=== PATIENT | male | born 1980 | race Caucasian/White ===

== ENCOUNTER → 2016-04-09 | Outpatient (CLI) | payer OTHER ==
[2016-04-09 13:47] LABS: BASO % 0.4 %; BASO ABS # 0.02 K/uL (0-0.2); COMPLETE YES; HEMATOCRIT 45.3 % (42-52); IG% 0.2 %; LYMPH % 34.8 %; LYMPH ABS # 1.82 K/uL (1.2-3.4); MEAN CELL VOLUME 94.2 fL (80-100); MEAN CORPUSCULAR HEMOGLOBIN 32.6 pg (25-34); MEAN CORPUSCULAR HGB CONC 34.7 g/dl (32-36); MEAN PLATELET VOLUME 11.9 fL (7.4-10.4); MONO % 17.4 %; NEUT % 46.2 %; PLATELET COUNT 202 K/uL (130-400); RED BLOOD COUNT 4.81 M/uL (4.7-6.1); WHITE BLOOD COUNT 5.23 K/uL (4.8-10.8)
[2016-04-09 15:38] LABS: ALT/SGPT 28 U/L (12-78); AST/SGOT 18 U/L (15-37); BLOOD UREA NITROGEN 20 mg/dl (7-18); BUN/CREATININE RATIO 17.9 (10-20); CALCIUM 8.9 mg/dl (8.5-10.1); CARBON DIOXIDE 28 mmol/L (21-32); CHLORIDE 104 mmol/L (98-107); GLUCOSE 86 mg/dl (70-99); SODIUM 140 mmol/L (136-145)
[2016-04-09 15:40] LABS: ALB/GLOB RATIO 1.1 (0.9-2); ALKALINE PHOSPHATASE 70 U/L (45-117); CHOLESTEROL 187 mg/dl (0-200); HDL CHOLESTEROL 62 mg/dl; LDL CHOLESTEROL CALCULATED 112 mg/dl; TRIGLYCERIDES 63 mg/dl (0-150); VERY LOW DENSITY LIPOPROT CALC 13 mg/dl
== END | disposition home or self-care (01) ==
LOC: C.LABBC 10:18
PROVIDERS: ATTEND Family Medicine
DX: K62.5 Hemorrhage of anus and rectum (principal); K76.9 Liver disease, unspecified; Z13.220 Encounter for screening for lipoid disorders

== ENCOUNTER → 2016-04-14 | Outpatient (CLI) | payer OTHER ==
--- NOTE | 2016-04-14 09:16 | DIAGNOSTIC IMAGING REPORT ---
ULTRASOUND RIGHT UPPER QUADRANT ABDOMEN CLINICAL HISTORY: Follow-up liver lesion. COMPARISON STUDY: Abdominal CT dated 11/13/2015. TECHNIQUE: Real-time, grayscale, and color flow sonography of the right upper quadrant of the abdomen was performed. Images are reviewed in the transverse and longitudinal planes. FINDINGS: Liver: The liver is normal in size and echotexture. There is no intrahepatic biliary ductal dilatation. The main portal vein is patent. There is a 1.1 cm well-circumscribed echogenic lesion in the inferior right lobe. There is also a similar-appearing echogenic lesion in the subcapsular superior right lobe measuring up to 2.2 cm. This corresponds to the lesion seen by CT on 11/13/2015. Gallbladder: A 5 mm gallbladder polyp is incidentally noted. The gallbladder is otherwise normal in appearance. No gallstones are identified. There is no gallbladder wall thickening or pericholecystic fluid. A sonographic Hand's sign is reportedly absent. The common bile duct measures up to 0.3 cm in diameter. Pancreas: Not well visualized due to overlying bowel gas. Right kidney: Survey images of the right kidney demonstrate normal size and echotexture. There is no hydronephrosis. Ascites: None. IMPRESSION: 1. No acute sonographic abnormality is identified. 2. There are 2 well-circumscribed echogenic hepatic lesions in the right lobe. One of these corresponds to the lesion seen by CT on 11/13/2015. These are typical in appearance for benign hemangiomas. These are of doubtful significance if there is no cancer history. 3. A 5 mm gallbladder polyp is incidentally noted. 4. The pancreas was not well visualized due to overlying bowel gas. Electronically signed by: Lenin Fletcher M.D. 04/14/2016 9:14 AM Dictated Date/Time: 04/14/2016 9:10 AM
== END | disposition home or self-care (01) ==
LOC: C.ULTR 08:17
PROVIDERS: ATTEND Family Medicine
DX: K76.9 Liver disease, unspecified (principal); K82.4 Cholesterolosis of gallbladder

== ENCOUNTER → 2017-06-29 | Outpatient (CLI) | payer BC, OTHER ==
--- NOTE | 2017-06-29 16:38 | DIAGNOSTIC IMAGING REPORT ---
C-SPINE ROUTINE W/FLEX EXT CLINICAL HISTORY: 36 years-old Male presenting with CERVICAL FRACTURE. TECHNIQUE: Lateral, bilateral oblique, frontal, open-mouth odontoid, and submental views were obtained. Additionally flexion and extension lateral views were obtained. COMPARISON: CT from 11/13/2015. FINDINGS: Straightening of normal cervical lordosis, likely positional vertebral bodies maintain normal height and alignment. Intervertebral disc heights are preserved. 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 Small disc osteophyte complexes suggested at C4-5 and C5-6. No significant posterior bony spurring. No radiographic evidence of osseous neural foraminal narrowing. No compression deformity or subluxation. Lateral masses of C1 articulate normally with C2. Normal appearance of the dens. Normal predental interval. No prevertebral soft tissue swelling. Dynamic imaging on flexion demonstrates expected reversal of normal cervical lordosis. No evidence of subluxation. Normal predental interval. Dynamic imaging on extension similarly demonstrates expected exaggeration of cervical lordosis. No subluxation. Normal predental interval. IMPRESSION: 1. No radiographic evidence of acute osseous injury. No subluxation with dynamic imaging. 2. Ponticulus posticus (arcuate foramen) of C1 again noted, better appreciated on prior CT from 11/13/2015. Electronically signed by: Cornelius Keller M.D. 06/29/2017 4:36 PM Dictated Date/Time: 06/29/2017 4:30 PM
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
== END | disposition home or self-care (01) ==
LOC: C.RADBC 15:57
PROVIDERS: ATTEND Family Medicine Adult Medicine
DX: S12.000A Unspecified displaced fracture of first cervical vertebra, initial encounter for closed fracture (principal); S22.009A Unspecified fracture of unspecified thoracic vertebra, initial encounter for closed fracture; X58.XXXA Exposure to other specified factors, initial encounter

== ENCOUNTER 2020-11-08 11:48 | Inpatient (IN) ==
[2020-11-08] MEDS ORDERED: ACETAMINOPHEN 1,000 MG/100 ML VIAL IV STA (12:31)
[2020-11-08] MEDS ORDERED: SODIUM CHLORIDE 0.9% 1000ML 1,000 ML IV SCH (12:45)
[2020-11-08 13:01] LABS: Hematocrit (blood only) 43.1 % (42-52); Mean Corpuscular Hgb Conc 34.8 g/dL (32-36); Mean Corpuscular Volume 94.7 fL (80-100); Mean Platelet Volume 11.5 fL (7.4-10.4); Platelet Count 109 K/uL (130-400); RDW Coefficient of Variation 12.7 % (11.5-14.5); RDW Standard Deviation 44.3 fL (36.4-46.3); Red Blood Count 4.55 M/uL (4.7-6.1); White Blood Count 1.59 K/uL (4.8-10.8)
[2020-11-08 13:09] LABS: INR 1.1 (0.9-1.1); Partial Thromboplastin Ratio 1.2; Partial Thromboplastin Time 31.3 Seconds (21.0-31.0); Prothrombin Time 10.9 Seconds (9.0-12.0)
--- NOTE | 2020-11-08 13:11 | XRay Report ---
SINGLE VIEW CHEST CLINICAL HISTORY: Sepsis. FINDINGS: 2 AP, portable, upright chest radiographs are compared to chest x-ray and chest CT dated 11/13/2015. The cardiomediastinal silhouette is unremarkable. The lungs and pleural spaces are clear. No pneumothorax is seen. The bony thorax is grossly intact. IMPRESSION: No active disease in the chest. ACT 112: Negative or not required by law. Electronically signed by: Lenin Fletcher M.D. 11/08/2020 1:10 PM
[2020-11-08 13:19] LABS: Albumin Level 3.6 gm/dl (3.4-5.0); BUN Creatinine Ratio 9.4 (10-20); Calcium 8.2 mg/dl (8.5-10.1); Creatinine Clr Calc Pharmacy 76.8 ml/min; Est GFR (African American) 77.7 ml/min; Magnesium 1.8 mg/dl (1.8-2.4); Potassium 3.9 mmol/L (3.5-5.1)
[2020-11-08 13:21] LABS: Bilirubin,Total 0.4 mg/dl (0.2-1); Globulin 3.7 gm/dl (2.5-4.0); Total Protein 7.3 gm/dl (6.4-8.2)
[2020-11-08 13:50] LABS: Basophils # (auto) 0.01 K/uL (0-0.2); Basophils % (auto) 0.6 %; Eosinophils # (auto) 0.12 K/uL (0-0.5); Eosinophils % (auto) 7.5 %; Immature Granulocytes # (auto) 0.01 K/uL (0.00-0.02); Immature Granulocytes % (auto) 0.6 %; Lymphocytes % (auto) 37.7 %; Monocytes # (auto) 0.18 K/uL (0.11-0.59); Monocytes % (auto) 11.3 %; Neutrophils # (auto) 0.67 K/uL (1.4-6.5); Neutrophils % (auto) 42.3 %
[2020-11-08 14:22] LABS: Appearance Urine Clear (Clear); Bilirubin Urine Negative (Negative); Blood Urine Negative (Negative); Color Urine Yellow; Glucose Urine UA Negative (Negative); Ketones Urine Negative (Negative); Leukocyte Esterase Urine Negative (Negative); Nitrite Urine Negative (Negative); Protein Urine Negative (Negative); Specific Gravity Urine 1.022 (1.000-1.030); Urobilinogen Urine Negative (Negative)
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
[2020-11-08] MEDS ORDERED: CEFEPIME 2,000 MG/20 ML VIAL IV STA (14:50)
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
[2020-11-08] MEDS ORDERED: ONDANSETRON INJ 2 MG/ML 2 ML VIAL IV PRN (20:12)
[2020-11-08] MEDS: DOXYCYCLINE HYCLATE 100 MG in DEXTROSE 5% 100 ML IV SCH (22:04)
[2020-11-08] MEDS: NSS + 20MEQ KCL 20 MEQ/1,000 ML BAG IV SCH (22:04)
[2020-11-08] MEDS: cefTRIAXone SODIUM 2,000 MG in DEXTROSE 5% 50 ML IV SCH (22:05)
[2020-11-08] MEDS: KETOROLAC 30 MG/ML VIAL IV PRN (22:06)
[2020-11-08] MEDS: ACETAMINOPHEN 500 MG TAB PO PRN (22:06)
[2020-11-09 07:21] LABS: Hematocrit (blood only) 41.3 % (42-52); Hemoglobin 14.1 g/dL (14.0-18.0); Mean Corpuscular Hemoglobin 32.7 pg (25-34); Mean Corpuscular Hgb Conc 34.1 g/dL (32-36); Mean Corpuscular Volume 95.8 fL (80-100); RDW Coefficient of Variation 12.9 % (11.5-14.5); RDW Standard Deviation 45.2 fL (36.4-46.3); Red Blood Count 4.31 M/uL (4.7-6.1); White Blood Count 1.99 K/uL (4.8-10.8)
[2020-11-09] MEDS: NSS + 20MEQ KCL 20 MEQ/1,000 ML BAG IV SCH (07:31)
[2020-11-09 07:42] LABS: Mean Platelet Volume 11.3 fL (7.4-10.4); Platelet Count 95 K/uL (130-400)
[2020-11-09 07:44] LABS: Basophils # (auto) 0.02 K/uL (0-0.2); Eosinophils # (auto) 0.13 K/uL (0-0.5); Eosinophils % (auto) 6.5 %; Immature Granulocytes # (auto) 0.01 K/uL (0.00-0.02); Immature Granulocytes % (auto) 0.5 %; Lymphocytes # (auto) 1.03 K/uL (1.2-3.4); Lymphocytes % (auto) 51.8 %; Monocytes # (auto) 0.18 K/uL (0.11-0.59); Neutrophils # (auto) 0.62 K/uL (1.4-6.5); Neutrophils % (auto) 31.2 %; Platelet Estimate Decreased (Normal)
[2020-11-09] MEDS: DOXYCYCLINE HYCLATE 100 MG in DEXTROSE 5% 100 ML IV SCH ×2 (07:59→19:37)
[2020-11-09] MEDS: KETOROLAC 30 MG/ML VIAL IV PRN (08:00)
[2020-11-09] MEDS: ACETAMINOPHEN 500 MG TAB PO PRN ×2 (08:00→19:36)
[2020-11-09] MEDS: MULTIVITAMIN TAB PO SCH (08:00)
[2020-11-09 08:02] LABS: Albumin Level 2.9 gm/dl (3.4-5.0); BUN Creatinine Ratio 13.1 (10-20); Calcium 7.9 mg/dl (8.5-10.1); Creatinine Clr Calc Pharmacy 91.3 ml/min; Est GFR (African American) 95.8 ml/min; Est GFR (Non-African American) 82.6 ml/min; Potassium 4.4 mmol/L (3.5-5.1)
[2020-11-09 08:05] LABS: Albumin Globulin Ratio 0.8 (0.9-2); Bilirubin,Total 0.4 mg/dl (0.2-1); Globulin 3.6 gm/dl (2.5-4.0); Total Protein 6.5 gm/dl (6.4-8.2)
[2020-11-09] MEDS: SODIUM CHLORIDE 0.9% 1000ML 1,000 ML IV SCH (14:03)
--- NOTE | 2020-11-09 17:23 | Hospitalist Progress Note ---
Date of Service November 09, 2020 Assessment & Plan (1) Febrile illness, acute: Plan: Patient presents with 5+ days of a severe febrile illness. Associated symptoms include chills, severe arthralgias & myalgias, anorexia, and headache. Minimal sore throat. Otherwise no other significant URI or pulmonary symptoms. Labs notable for leukopenia, neutropenia, thrombocytopenia, and minimally elevated AST with normal procalcitonin. Anaplasmosis smear x 2 negative. Lyme on 11/06 was negative. Anaplasmosis PCR pending. COVID PCR on 11/06 was negative, and patient has been fully vaccinated. Differential remains tick-borne illness (highly suspect anaplasmosis vs Jair M ountain Spotted Fever) vs viral process. Although he has sore throat a bacterial pharyngitis (strep) would be unusual given his other findings. Will add ASO titer Although rash is not typical for anaplasmosis or ehrlichiosis you can still get diffuse maculopapular rashes with each. The rash is not typical for disseminated Lyme rash. He does not have meningeal signs on exam. If viral - EBV, CMV, parvovirus, adenovirus - are all possible culprits given his presentation. Plan - - continue empiric abx therapy (with doxy as seems highly suspicious for tick born illness) and Rocephin (? strep given PCN allergy) - continue to monitor labs - keep in reverse isolate until no longer moderately neutropenic. (2) Rash: Plan: I do not think this represents a drug reaction to either doxycycline or bactrim. The rash is not pruritic as would be expected with a drug reaction. I do not think the rash is a photosensitivity rash to doxycycline. He had 3 doses of doxycycline [employer] and has not spent any significant amount of time outside in the sun since starting the doxycycline. Rash has a more typical appearance for viral etiology vs that with RMSF vs scarlatina Anaplasmosis/ehrlichiosis also possible still. See work-up above in #1. (3) Hyponatremia: Plan: Patient appears mildly volume depleted. improving with IVF stop after current bag infused (4) Elevated AST (SGOT): Plan: given extreme myalgias- CPK level obtained and was normal Alternatively he could be developing a transaminitis from a viral or tick-borne process. continue to trend (5) Neutropenia: Plan: Mod- but improving (ANC was 280, now 670). Due to #1. Neutropenic precautions. Repeat CBC w/ diff in am. (6) Thrombocytopenia: Plan: mild/stable Viral vs tick-borne etiology suspected. Repeat CBC in am. If platelets remain about this level I believe that NSAIDs for his headache/fever/myalgias/etc should be ok. [id number] trend the platelets over next few days. (7) Leukopenia: Plan: - see above (8) DVT prophylaxis: Plan: patient low risk for DVT. will defer on chemical means at this time. if he becomes more bed-ridden due to illness then add lovenox but hold for now. Plan: Plan of care will be discussed with Dr. Stratton. Further orders as warranted. Admission and Anticipated Discharge Date Admission Date: November 08, 2020 Subjective Patient seen on daily rounds today. He was hospitalized last night with flulike symptoms ongoing X 5 days. Is very active. Bicycles and travels often. From [facility], he had injured his left toe and [facility]. Several days into his course of antibiotics, he began feeling overall ill. Presented to the ED on 11/06 with fevers of 101X 2 days. At that time, he was found to be leukopenic with mild transaminitis. He was thought to have a tickborne illness and was prescribed doxycycline. His anaplasmosis smear was negative. Lyme IgM/IgG negative. Covid negative. Influenza negative. Chest x-ray showed no acute pathology. Was able to take his doxycycline on 11/07 but subsequently developed a generalized rash from head to toe. Was uncertain if it was from the doxycycline so he stopped. Had persistent fevers and increasing rash prompting him to come back to the ED on 11/08. There he was found to have persistent leukopenia and pancytopenia. ANC was moderate to severely low. Repeat anaplasmosis smear was negative. PCR is pending. The prior smear done was negative for babesiosis. He was subsequently hospitalized into reverse isolation for his neutropenia. He was empirically continued on doxycycline as his rash was thought to be a viral exanthem and not related to a drug eruption. In addition, was hydrated with IV fluids and empirically started on Rocephin. He has since not had any fever spikes. His ANC is increasing to mild neutropenia. He remains leukopenic and thrombocytopenic. Overall he has no significant improvement in symptomatology. Review of Systems Review of Systems: All systems reviewed and are unremarkable except as noted in HPI and below Denies fevers, chills, headache, nasal congestion, sore throat, cough, chest pain, shortness of breath, abdominal pain, nausea, vomiting, dysuria, hematuria, frequency, skin lesions or rashes. Physical Exam Physical Exam: General: Resting comfortably in his hospital bed. Appears moderately ill but not toxic Neck: No JVD. Negative hepatojugular reflex Cardiac: RRR without M/G/R Lungs: CTA without W/R/R Abdomen: Normoactive X4. Soft and nontender in all quadrants. Extremities: No peripheral clubbing cyanosis or edema. Bilateral feet examined including the left large toe (for which he was on Bactrim). Toe is not red or edematous. No drainage. No evidence of ingrown nail. Does not seem actively infected. Neuro: A&O X4 cranial nerves II through XII are grossly intact no focal neuro deficits Skin: Patient's face/trunk/and neck are extremely hyperemic. In the axillary region and under his arms, he has pinpoint macular lesions with a lacy appearance that spreads down his abdomen and into his thighs ending at his ankles. The trunk/face and neck seems to be so populated with macular lesions that it has coalesced into what appears as hyperemia Results & Data Results & Data ([facility]) Vital Signs (Past 12 Hours) Vital Signs Temp Pulse Pulse Resp BP Pulse Ox 11/09/20 15:36 36.8 C 66 16 101/63 98 11/09/20 14:21 68 11/09/20 11:18 36.7 C 63 16 98/60 L 98 11/09/20 07:21 36.8 C 65 18 102/63 97 11/09/20 07:06 60 Laboratory Results 11/09/20 07:01 11/09/20 07:01 PG Care Time/CCT Total # of Minutes Spent Total Time Spent with Patient: Total time spent is greater than 50% in coordination of care (as documented) at patient's floor/unit and/or counseling patient: C[place] [address] Subseq Hosp Care Lvl 3 Patient Type Established History Comprehensive Exam Comprehensive Medical Decision Making High Complexity Diagnoses Febrile illness, acute R50.9 Rash R21 Hyponatremia E87.1 Elevated AST (SGOT) R74.01 Neutropenia D70.9 Thrombocytopenia D69.6 Leukopenia D72.819 DVT prophylaxis Z29.9
[2020-11-09] MEDS ORDERED: Nursing to Pharmacy Communication SCH (19:15)
[2020-11-09] MEDS: cefTRIAXone SODIUM 2,000 MG in DEXTROSE 5% 50 ML IV SCH (21:46)
[2020-11-10] MEDS: SODIUM CHLORIDE 0.9% 1000ML 1,000 ML IV SCH (02:17)
--- NOTE | 2020-11-10 06:11 | Electrocardiogram Report ---
Test Reason : Blood Pressure : / mmHG Vent. Rate : 086 BPM Atrial Rate : 086 BPM P-R Int : 140 ms QRS Dur : 096 ms QT Int : 374 ms P-R-T Axes : 063 060 012 degrees QTc Int : 447 ms Normal sinus rhythm Normal ECG When compared with ECG of 13-NOV-2015 19:30, Premature atrial complexes are no longer Present Confirmed by Mark Last ([id number]) on 11/10/2020 6:10:59 AM Referred By: ED Confirmed By:Mark Last
[2020-11-10 06:48] LABS: Hemoglobin 13.2 g/dL (14.0-18.0); Mean Corpuscular Hemoglobin 32.4 pg (25-34); Mean Corpuscular Hgb Conc 33.8 g/dL (32-36); Mean Corpuscular Volume 95.8 fL (80-100); Mean Platelet Volume 11.3 fL (7.4-10.4); Platelet Count 108 K/uL (130-400); RDW Coefficient of Variation 12.9 % (11.5-14.5); RDW Standard Deviation 45.2 fL (36.4-46.3); Red Blood Count 4.07 M/uL (4.7-6.1)
[2020-11-10 07:03] LABS: BUN Creatinine Ratio 12.9 (10-20); Calcium 7.8 mg/dl (8.5-10.1); Creatinine Clr Calc Pharmacy 110.2 ml/min; Est GFR (African American) 120.2 ml/min; Est GFR (Non-African American) 103.7 ml/min; Magnesium 1.6 mg/dl (1.8-2.4); Potassium 4.5 mmol/L (3.5-5.1)
[2020-11-10 07:06] LABS: Albumin Globulin Ratio 0.9 (0.9-2); Bilirubin,Total 0.3 mg/dl (0.2-1); Globulin 3.4 gm/dl (2.5-4.0); Total Protein 6.4 gm/dl (6.4-8.2)
[2020-11-10 07:22] LABS: Basophils # (auto) 0.02 K/uL (0-0.2); Basophils % (auto) 0.7 %; Eosinophils # (auto) 0.15 K/uL (0-0.5); Eosinophils % (auto) 5.6 %; Lymphocytes # (auto) 1.26 K/uL (1.2-3.4); Lymphocytes % (auto) 46.7 %; Monocytes # (auto) 0.33 K/uL (0.11-0.59); Monocytes % (auto) 12.2 %; Neutrophils # (auto) 0.94 K/uL (1.4-6.5); Neutrophils % (auto) 34.8 %; Platelet Estimate Decreased (Normal)
[2020-11-10] MEDS: DOXYCYCLINE HYCLATE 100 MG in DEXTROSE 5% 100 ML IV SCH ×2 (08:07→20:36)
[2020-11-10] MEDS: ACETAMINOPHEN 500 MG TAB PO PRN ×2 (08:09→15:17)
[2020-11-10] MEDS: MULTIVITAMIN TAB PO SCH (08:09)
[2020-11-10] MEDS: ENOXAPARIN INJ 40 MG/0.4 ML SYR SQ SCH (15:17)
--- NOTE | 2020-11-10 18:40 | Hospitalist Progress Note ---
Date of Service November 10, 2020 Assessment & Plan (1) Febrile illness, acute: Plan: Patient presents with 5+ days of a severe febrile illness. Associated symptoms include chills, severe arthralgias & myalgias, anorexia, and headache. Minimal sore throat. Otherwise no other significant URI or pulmonary symptoms. Labs notable for leukopenia, neutropenia, thrombocytopenia, and minimally elevated AST with normal procalcitonin. Anaplasmosis smear x 2 negative. Lyme on 11/06 was negative. Anaplasmosis PCR pending. COVID PCR on 11/06 was negative, and patient has been fully vaccinated. Differential remains tick-borne illness (highly suspect anaplasmosis vs Jair M ountain Spotted Fever) vs viral process. Although he has sore throat a bacterial pharyngitis (strep) would be unusual given his other findings. Will add ASO titer Although rash is not typical for anaplasmosis or ehrlichiosis you can still get diffuse maculopapular rashes with each. The rash is not typical for disseminated Lyme rash. He does not have meningeal signs on exam. If viral - EBV, CMV, parvovirus, adenovirus - are all possible culprits given his presentation. Plan - -Given his presentation, tick borne vector seems highly suspicious -His ASO titer is nonreactive. We will de-escalate his coverage and stop Rocephin. Continue doxycycline for now -Continue to monitor labs and clinical status. If continued improvement, consider discharge to home tomorrow (2) Rash: Plan: I do not think this represents a drug reaction to either doxycycline or bactrim. The rash is not pruritic as would be expected with a drug reaction. I do not think the rash is a photosensitivity rash to doxycycline. He had 3 doses of doxycycline [employer] and has not spent any significant amount of time outside in the sun since starting the doxycycline. Rash has a more typical appearance for viral etiology vs that with RMSF. ASO negative Anaplasmosis/ehrlichiosis also possible still. See work-up above in #1. (3) Hyponatremia: Plan: Improved with IV hydration. Likely due to volume contraction (4) Elevated AST (SGOT): Plan: given extreme myalgias- CPK level obtained and was normal Alternatively he could be developing a transaminitis from a viral or tick-borne process. continue to trend. Labs overall stable (5) Neutropenia: Plan: Mod- but improving (ANC was 280, 670, now 939). Due to #1. Neutropenic precautions. Repeat CBC w/ diff in am. (6) Thrombocytopenia: Plan: mild/stable Viral vs tick-borne etiology suspected. Repeat CBC in am. If platelets remain about this level I believe that NSAIDs for his headache/fever/myalgias/etc should be ok. [id number] trend the platelets over next few days. (7) Leukopenia: Plan: - see above (8) DVT prophylaxis: Plan: patient low risk for DVT. will defer on chemical means at this time. if he becomes more bed-ridden due to illness then add lovenox but hold for now. Plan: Plan of care will be discussed with Dr. Stratton. Further orders as warranted. Admission and Anticipated Discharge Date Admission Date: November 08, 2020 Subjective Patient seen on daily rounds today. Overall, voices significant improvement. His T-max over the past 24 hours has been 99.2. He has been hemodynamically stable. He feels fatigued but his appetite has improved. In addition, his rash is significantly improving. His lab data is approaching baseline Review of Systems Review of Systems: All systems reviewed and are unremarkable except as noted in HPI and below Denies fevers, chills, headache, nasal congestion, sore throat, cough, chest pain, shortness of breath, abdominal pain, nausea, vomiting, dysuria, hematuria, frequency, skin lesions or rashes. Physical Exam Physical Exam: General: Resting comfortably in his hospital bed. Appears well and not ill or toxic Neck:[No JVD.][Negative hepatojugular reflex] Cardiac:[RRR][without M/G/R] Lungs:[CTA][without W/R/R] Abdomen:[Normoactive X4.][Soft and nontender in all quadrants.] Extremities: [No peripheral clubbing cyanosis or edema] Neuro:[A&O X4][cranial nerves II through XII are grossly intact][no focal neuro deficits] Skin: The extreme hyperemia of his face and trunk has settled substantially. The lacy/macular papular rash noted in his axilla, thighs, and legs is still present but improved substantially Results & Data Results & Data ([facility]) Vital Signs (Past 12 Hours) Vital Signs Temp Pulse Pulse Resp BP Pulse Ox 11/10/20 16:07 36.7 C 61 16 118/59 L 98 11/10/20 15:49 67 11/10/20 11:17 36.8 C 61 16 106/68 98 11/10/20 07:16 37.4 C 64 16 104/63 96 11/10/20 07:11 66 Laboratory Results 11/10/20 06:35 11/10/20 06:35 CMV: Pending Ehrlichiosis: Pending EBV: Pending Parvovirus: Pending Q fever: Pending [place] spotted fever: Pending Typhus: Pending Anaplasmosis PCR: Pending ASO: Nonreactive PG Care Time/CCT Total # of Minutes Spent Total Time Spent with Patient: Total time spent is greater than 50% in coordination of care (as documented) at patient's floor/unit and/or counseling patient: Coding [place] [address] Subseq Hosp Care Lvl 2 Patient Type Established History Expanded Problem Focused Exam Expanded Problem Focused Medical Decision Making Moderate Complexity Diagnoses Febrile illness, acute R50.9 Rash R21 Hyponatremia E87.1 Elevated AST (SGOT) R74.01 Neutropenia D70.9 Thrombocytopenia D69.6 Leukopenia D72.819 DVT prophylaxis Z29.9
[2020-11-11 06:12] LABS: Hematocrit (blood only) 42.5 % (42-52); Hemoglobin 14.5 g/dL (14.0-18.0); Mean Corpuscular Hemoglobin 32.5 pg (25-34); Mean Corpuscular Hgb Conc 34.1 g/dL (32-36); Mean Corpuscular Volume 95.3 fL (80-100); Mean Platelet Volume 11.7 fL (7.4-10.4); Platelet Count 118 K/uL (130-400); RDW Coefficient of Variation 12.7 % (11.5-14.5); RDW Standard Deviation 44.1 fL (36.4-46.3); Red Blood Count 4.46 M/uL (4.7-6.1); White Blood Count 3.72 K/uL (4.8-10.8)
[2020-11-11 06:46] LABS: Basophils # (auto) 0.02 K/uL (0-0.2); Basophils % (auto) 0.5 %; Eosinophils # (auto) 0.12 K/uL (0-0.5); Eosinophils % (auto) 3.2 %; Immature Granulocytes # (auto) 0.01 K/uL (0.00-0.02); Immature Granulocytes % (auto) 0.3 %; Lymphocytes # (auto) 1.91 K/uL (1.2-3.4); Lymphocytes % (auto) 51.3 %; Monocytes # (auto) 0.55 K/uL (0.11-0.59); Monocytes % (auto) 14.8 %; Neutrophils # (auto) 1.11 K/uL (1.4-6.5); Neutrophils % (auto) 29.9 %
[2020-11-11 06:49] LABS: Albumin Level 3.4 gm/dl (3.4-5.0); BUN Creatinine Ratio 12.7 (10-20); Calcium 8.4 mg/dl (8.5-10.1); Creatinine Clr Calc Pharmacy 123.6 ml/min; Est GFR (African American) 128.2 ml/min; Est GFR (Non-African American) 110.6 ml/min; Potassium 4.1 mmol/L (3.5-5.1)
[2020-11-11 06:51] LABS: Albumin Globulin Ratio 0.9 (0.9-2); Bilirubin,Total 0.5 mg/dl (0.2-1); Globulin 3.6 gm/dl (2.5-4.0)
[2020-11-11] MEDS: DOXYCYCLINE HYCLATE 100 MG in DEXTROSE 5% 100 ML IV SCH (08:14)
[2020-11-11] MEDS: MULTIVITAMIN TAB PO SCH (08:15)
[2020-11-11] MEDS: ENOXAPARIN INJ 40 MG/0.4 ML SYR SQ SCH (08:15)
[2020-11-11] MEDS: ACETAMINOPHEN 500 MG TAB PO PRN (08:15)
--- NOTE | 2020-11-11 16:48 | Discharge Summary ---
Date of Service November 11, 2020 Admission HPI Per Admitting Provider 40yo male with no significant PMH presents with febrile illness starting Thursday pm of this past weekend. He had been at [facility] on Thursday and on the way home he started to feel ill. By night-fall he had fevers of 101-102 along with fatigue and arthralgias. In addition to the fevers he also developed frontal headaches, bodyaches, severe arthralgias (hips, back but "everywhere"), chills, and anorexia. No significant URI symptoms but he developed a minimal amount of sore throat in the last 24 hours along with minimal nasal congestion. Thursday he came to the hospital ER for evaluation. During that visit he had a negative Lyme test and negative anaplasmosis screen. He was leukopenic and neutropenic. Tick-borne illness was still a concern, however, and he was placed on doxycycline BID. COVID testing was negative. He was discharged home Thursday. He started the doxycycline on Thursday pm, and by Thursday he developed a rash on his chest which then spread to the shoulders. When he awoke today the rash "was everywhere." He has had NO Pruritis. He also had persistent fever; at 5am this morning his temperature was 105 degrees. Prior to this illness he had been taking bactrim for an ingrown toenail on the left. No sick contacts. Other than going to [facility] he has NOT traveled out of the area. No obvious tick bites. Fully vaccinated against COVID-19. Principal Diagnosis Working diagnoses: 1. Febrile illnessacute: Presumed tickborne vector has since defervesced 2. Neutropenia/leukopeniaimproving 3. Thrombocytopeniaresolved 4. Hyponatremiaresolved with IV hydration 5. Transaminitisstable 6. Large internal hemorrhoids Discharge Exam General: Resting comfortably in his hospital bed. NAD. Neck: No JVD. Negative hepatojugular reflex Cardiac: RRR without M/G/R Lungs: CTA without W/R/R Abdomen: Normoactive X4. Soft and nontender in all quadrants. Extremities: No peripheral clubbing cyanosis or edema Neuro: A&O X4 cranial nerves II through XII are grossly intact no focal neuro deficits Skin: Initially with consisted of macular papular lesions. They coalesced so tightly on his face, trunk and abdomen that those areas seemed hyperemic or as if they were sunburned. Under his arms, his axillary region, his thighs and down his legs the rash was more scattered and sparse. Throughout his hospital stay, the nature of his rash changed in that the hyperemia/redness of his trunk and face improved greatly and the macular papular regions turned into more petechiae Rectal: Large amounts of naa blood in the toilet. Rectal exam shows 2 internal hemorrhoids that are protruding outward. One at 12:00 is rather large and approximately the size of a small grape. It is soft and squishy and does not appear to be thrombosed. Just to the left at this, is a much smaller internal hemorrhoid that is approximately the size of an eraser. It is also not thrombosed. Neither are painful to touch. The larger one does ooze blood when touched. Discharge Data Allergies Allergy/AdvReac Type Severity Reaction Status Date / Time amoxicillin Allergy Unknown UNKNOWN Unverified 11/08/20 20:04 Penicillins Allergy Unknown UNKNOWN Unverified 11/08/20 20:04 Consultations 11/08/20 14:42 ED Decision to Admit Stat Ordered Studies Chest X-Ray 11/08/20 12:31 SINGLE VIEW CHEST CLINICAL HISTORY: Sepsis. FINDINGS: 2 AP, portable, upright chest radiographs are compared to chest x-ray and chest CT dated 11/13/2015. The cardiomediastinal silhouette is unremarkable. The lungs and pleural spaces are clear. No pneumothorax is seen. The bony thorax is grossly intact. IMPRESSION: No active disease in the chest. ACT 112: Negative or not required by law. CMV: Pending Ehrlichiosis: Pending EBV: Pending Parvovirus: Pending Q fever: Pending [place] spotted fever: Pending Typhus: Pending Anaplasmosis PCR: negative ASO: Nonreactive 11/11/20 05:43 11/11/20 05:43 White blood cell count: 1.99-2.7-3.72 Platelet count: 95-108-118 AST: 6470-89 ALT: 652018 Total bilirubin: 0.400.300.50 Hospital Course (1) Febrile illness, acute: Patient presented with 5+ days of a severe febrile illness. Associated symptoms include chills, severe arthralgias & myalgias, anorexia, and headache. Minimal sore throat. Otherwise no other significant URI or pulmonary symptoms. Labs notable for leukopenia, neutropenia, thrombocytopenia, and minimally elevated AST with normal procalcitonin. Anaplasmosis smear x 2 negative. Lyme on 11/06 was negative. Anaplasmosis is negative COVID PCR on 11/06 was negative, and patient has been fully vaccinated. Patient was hospitalized with what seemed to be a tickborne illness. Differential diagnoses included EBV, CMV, parvovirus, adenovirus, typhus, Q fever and strep/scarlatina Patient was hydrated with IV fluids. He was empirically placed on Rocephin and doxycycline. The rash that he presented with did not seem to be like a drug eruption but that from either a tickborne illness (like [place] spotted fever or ehrlichiosis) or even a viral exanthem. He did not have meningeal signs on exam. Patient showed significant favorable response to empiric treatment CMV: Pending Ehrlichiosis: Pending EBV: Pending Parvovirus: Pending Q fever: Pending [place] spotted fever: Pending Typhus: Pending Anaplasmosis PCR: Is negative ASO: Nonreactive Patient's neutropenia went from moderately severe to mild. He was in reverse isolation upfront until this improved His LFTs remained mildly elevated and his thrombocytopenia improved. All of this really seems tickborne in nature. His ASO titer came back nonreactive. After 48 hours of Rocephin and doxycycline, the Rocephin was discontinued and he continued to show favorable response On 11/11, patient seen on daily rounds and his rash is overall much improved. It is not resolved but substantially improved. His white blood cell count is approaching normal as is his platelet count. His LFTs remain mildly elevated but stable nonetheless Despite most of his lab data pending, he is hemodynamically stable for discharge to home with continued doxycycline for presumed tickborne illness. Advise follow-up with PCP for follow-up lab work to trend labs (2) Rash: I do not think this represents a drug reaction to either doxycycline or bactrim. The rash is not pruritic as would be expected with a drug reaction. I do not think the rash is a photosensitivity rash to doxycycline. He had 3 doses of doxycycline BAG BUNDLER and has not spent any significant amount of time outside in the sun since starting the doxycycline. Rash has a more typical appearance for viral etiology vs that with RMSF. ASO negative Anaplasmosis PCR negative/ehrlichiosis also possible still. See work-up above in #1. (3) Hyponatremia: Improved with IV hydration. Likely due to volume contraction (4) Elevated AST (SGOT): given extreme myalgias- CPK level obtained and was normal Alternatively he could be developing a transaminitis from a viral or tick-borne process. continue to trend. Labs overall stable (5) Neutropenia: Mod- but improving (ANC was 280, 670, 939 now 1112). Due to #1. Neutropenic precautions stopped (6) Thrombocytopenia: mild/stable Viral vs tick-borne etiology suspected. Repeat CBC in am. If platelets remain about this level I believe that NSAIDs for his headache/fever/myalgias/etc should be ok. [id number] trend the platelets over next few days. (7) Internal hemorrhoid: -Patient was ready for discharge when he went to have a bowel movement and notified nurse that he had a large amount of naa blood. Nurse became concer saumya and held discharge until he was examined -Patient reports a history of internal hemorrhoids that have protruded through the anus that he had to self retract. He has never been examined for his he morrhoids. He is very active especially with a bicycle. He has been having around 2 loose BMs daily since being hospitalized. Denies straining to have a bowel movement. -He does have 2 internal hemorrhoids that are protruding through the anal canal (1 is rather large) but neither are thrombosed -I have reached out to surgery as my concern was with these being prolapsed, they would likely thrombosed. Spoke to general surgery who reports that the hemorrhoids can remain protruding out of the anus or can be pushed back in. -Patient declines having me put his hemorrhoids back in and reports "he will do this himself". -Lengthy discussion with patient regarding behavioral modifications including avoiding straining to have a BM, sitz bath's, avoiding lifting/long car rides/bicycling -We will discharge with Anusol suppositories along with Preparation H cream and Tucks wipes -He can follow-up with general surgery as they are recommending a colonoscopy at some point once he is through this illness -Patient was not on pharmacologic DVT prophylaxis given his thrombocytopenia. His thrombocytopenia is likely increased the hemorrhoid bleeding. Patient's H&H has remained stable and is 14.5 and 42.5 respectively today (8) Leukopenia: - see above (9) DVT prophylaxis: patient low risk for DVT. will defer on chemical means at this time. if he becomes more bed-ridden due to illness then add lovenox but hold for now. Plan of care will be discussed with Dr. Stratton. Further orders as warranted. Total Time Total Time Spent Total Time Spent (In Minutes): 90 Discharge Plan Discharge Items Patient Disposition: Home - Self-Care Reason For Visit: SIRS, FEBRILE ILLNESS OF UNCERTAIN ETIOLOGY Discharge Diagnosis: 1. Fever 2. Neutropenia/leukopenia (white blood cell count)- improving 3. Thrombocytopenia (low platelet)-- improving 4. Transaminitis (elevated liver function studies)- stable 5. PRESUMED TICK BORN ILLNESS 6. Internal Hemorrhoid Activity: Resume your previous activity Non-emergency contact: Primary Care Provider Call non-emergency contact if: you have any medication questions and you have a fever Follow-up/Referrals: Da Amado MD, FACS [Surgeon] - (Please call to schedule follow up of evaluation of hemorrhoids in 1-2 weeks) Zena Wright MD [Primary Care Provider] - Diet: Regular Addtl Attending Provider Instructions: - complete full course of Doxycycline. Including doses already complete, last dose 11/21/20 - Doxycycline will cause sun sensitivity as discussed. Avoid the sun and if you need to be in the sun, make sure skin is adequately covered - be sure to assess for ticks after being outside. Can take measures to keep skin covered when outdoors (long sleeves and pants, tuck pants into socks, etc). Advise having help [assessing for ticks] in places that you can effectively see - follow up with your PCP: 7-10 days - would advise a follow up CBC, CMP in 1 week to continue to trend your WBC/platelet/and liver function studies (at discretion of PCP) - avoid alcohol until liver function studies can be reassessed - advise ibuprofen as needed for headache/fever/pain. May alternate with Tylenol if needed but use sparingly given mildly elevated liver function studies. - return to the ED for new or worsening symptoms Regarding the Internal Hemorrhoid: - avoid straining (even to have a BM), lifting, biking, long care rides (until hemorrhoid calmed down) - Use Anusol suppositories (Rx sent to the pharmacy) - in addition, would advise Preparation H (with hydrocortisone) which can be purchased over the counter. Use this twice a day and after each BM - Sitz baths (fill the tub with hot water and sit in it for several minutes twice a day and after each BM) - can use tucks wipes (as they can be soothing), would also use them to wipe with after having a BM - you should follow up with a GI or surgeon (after you recover from this illness) to have a colonoscopy Pending Studies at Discharge: Yes Studies:: Anaplasma- PCR Ehrlichiosis Jaren Presley Virus IgM/IgM Parvovirus Q-Fever [place] spotted Fever Typhus Cytomegalovirus IgM/IgG Stand-Alone Forms: My [facility], Work/School Release Medications and DC Order Prescriptions: New doxycycline hyclate 100 mg capsule 100 mg PO BID 14 Days Qty: 28 RF: 0 hydrocortisone acetate [Anusol-HC] 25 mg suppository 25 mg CO BID 14 Days RF: 0 Continued multivitamin Tablet 1 tab PO DAILY RF: 0 acetaminophen [Tylenol Extra Strength] 500 mg Tablet 1,000 mg PO Q6H PRN (Reason: Pain) RF: 0 ibuprofen [Motrin IB] 200 mg Tablet 400 mg PO Q6H PRN (Reason: Pain) RF: 0 Discontinued sulfamethoxazole-trimethoprim 800-160 mg Tablet 1 tab PO BID RF: 0 doxycycline hyclate 100 mg capsule 100 mg PO BID 10 Days Qty: 20 RF: 0 Discharge Orders: Discharge Order (Routine); Ordered 11/11/20 Ordered By: Zena Hernández/Other Patient Handouts: Tick Bites Admission Data Admit Date/Time: 11/08/20 15:29 Attending Provider: Ajay Stratton Admit Provider: Jon Camarena Primary Care Provider: Zena Wright Other Providers: Jon Camarena Other Interventions: Discharge Summary Assessment (RN) Last Done: 11/11/20 09:02 Supervising Physician Co-Signing Physician Notes Patient seen and examined on the day of discharge. I agree with the discharge summary by Zena NELSON. I have reviewed the chart including labs, imaging and plans for discharge. patient feeling a lot better, no fever, rash is resolving, arthralgia better WBC, platelets coming up appropriately - Tick born illness: suspect Erlichiosis since he has not been further [place] than [place] sent Erlichiosis PCR, Rickettsia antibodies complete course of Doxycycline at home follow up with PCP Coding Level of Care Code Established Pt D/C DAY MANAGEMENT >30 MINS Patient Type Established Diagnoses Febrile illness, acute R50.9 Rash R21 Hyponatremia E87.1 Elevated AST (SGOT) R74.01 Neutropenia D70.9 Thrombocytopenia D69.6 Leukopenia D72.819 DVT prophylaxis Z29.9 Internal hemorrhoid K64.8 Time Spent (min) 90
[2020-11-14 01:06] LABS: Ehrlichia chaff DNA Bld Negative (Negative)
[2020-11-14 08:01] LABS: CMV IgG Antibody 0.64 U/mL; CMV IgM Antibody <30.00 AU/mL; Parvovirus IgG 0.2 (<0.9); Parvovirus IgM 0.1 (<0.9)
[2020-11-15 01:01] LABS: Q Fever IgG, Phase I NEGATIVE; Q Fever Phase I IgM Antibody NEGATIVE; Q Fever Phase II IgG Antibody NEGATIVE; Q Fever Phase II IgM Antibody NEGATIVE; R. typhi IgG Ab NOT DETECTED; R. typhi IgM Ab NOT DETECTED; RMSF IgG Ab NOT DETECTED; RMSF IgM Ab NOT DETECTED
--- NOTE | 2020-11-20 18:08 | Coding Query ---
CODING QUERY To promote full compliance with coding requirements relating to patient care, provider participation is requested in all cases of information coder uncertainty. Please assist us with the question(s) below: Coding Question(s): Patient presenting with fever, sore throat, rash, thrombocytopenia. Lab work is back for Cytomegalovirus etc. Please review lab work and provide a diagnosis. Thank you. Owen Cifuentes, [facility] Physician's Response(s): this is NOT CMV, the IgM was negative and the IgG was equivocal, not high likely represent old infection/exposure still suspect tick born illness, could have been early Lyme disease anaplasmosis and Rickettsia negative he got better with Doxycycline Principal Diagnosis: "that condition established after study, to be chiefly responsible for occasioning the admission of the patient to the hospital for care." Co-Existing Principal Diagnosis: "when two or more diagnoses equally meet the criteria for principal diagnosis as determined by the circumstances of admission, diagnostic work up, and/or therapy provided, and the Alphabetic Index, Tabular List, or another coding guideline does not provide sequencing direction, any one of the diagnoses may be sequenced first." "When the physician has documented what appears to be a current diagnosis in the body of the record, but has not included the diagnosis in the final diagnostic statement, the physician should be asked whether the diagnosis should be added." (Source Coding Clinic 2 QTR90. p3-4) TREVON
== END 2020-11-11 12:54 | disposition home or self-care (01) | DRG 868 ==
LOC: ED 11:48 → 2W 15:29 → SUATTDRO 15:29 → 2W 19:40